=== PATIENT | male | born 1980 | race Caucasian/White ===

== ENCOUNTER → 2018-12-20 | Outpatient (CLI) | payer OTHER | END | disposition home or self-care (01) | LOC: LABPV 08:38 | PROVIDERS: ATTEND Internal Medicine | DX: R76.11 Nonspecific reaction to tuberculin skin test without active tuberculosis (principal) ==

== ENCOUNTER 2024-01-23 09:23 | Inpatient (IN) | payer OTHER ==
[~2024-01-23] VITALS: Ht 172.7 cm; Wt 102.1 kg
[2024-01-23 10:33] LABS: BASOPHILS % (AUTO) 0.4 % (0.0-2.0); EOSINOPHILS % (AUTO) 3.9 % (1.0-6.0); HEMATOCRIT 51.7 % (41-53); HEMOGLOBIN 17.5 g/dL (13.5-17.5); LYMPHOCYTES # (AUTO) 2.3 K/uL (1.0-4.8); LYMPHOCYTES % (AUTO) 32.8 % (22.0-44.0); MEAN CORPUSCULAR HGB CONC 33.9 G/dL (31.0-37.0); MEAN CORPUSCULAR VOLUME 91 fL (80-100); MONOCYTES # (AUTO) 0.6 K/uL (0.1-1.0); MONOCYTES % (AUTO) 8.7 % (2.0-9.0); NEUTROPHILS # (AUTO) 3.8 K/uL (1.8-7.7); NEUTROPHILS % (AUTO) 54.2 % (40.0-70.0); PLATELET COUNT (AUTO) 374 K/uL (150-450); RED BLOOD CELL COUNT(AUTO) 5.66 MIL/uL (4.50-5.90); RED CELL DISTRIBUTION WIDTH 13.5 % (11.5-14.5); WHITE BLOOD COUNT (AUTO) 7.1 K/uL (4.5-11.0)
[2024-01-23 10:48] LABS: ANION GAP 11 mmol/L (8-16); CALCIUM, TOTAL 8.6 mg/dL (8.8-10.5); CARBON DIOXIDE 26 mmol/L (22-29); CHLORIDE 103 mmol/L (98-107); CREATININE 0.83 mg/dL (0.60-1.30); GLOMERULAR FILTR. RATE CALC > 60 mL/min (>60); GLUCOSE,RANDOM 117 mg/dL (70-110); POTASSIUM 3.5 mmol/L (3.5-5.1); SODIUM SERUM 140 mmol/L (136-145); UREA NITROGEN, BLOOD 10 mg/dL (7-18)
[2024-01-23 11:05] LABS: ALCOHOL, BLOOD (SERUM) 240 mg/dL (0-10)
[2024-01-23 11:42] LABS: COVID AG,FIA SOURCE NASAL SWAB
[2024-01-23 12:00] LABS: SARS-COV2 (COVID) ANTIGEN,FIA Negative (Negative)
[2024-01-23] MEDS ORDERED: HALOPERIDOL 5 MG TABLET PO PRN (18:00)
[2024-01-24] MEDS: ZOLPIDEM TARTRATE 10 MG TABLET PO PRN (00:30)
[2024-01-24] MEDS: LORazepam 2 MG TABLET PO PRN (00:30)
[2024-01-24 03:16] VITALS: BP 138/103; PULSE 93; RESP 17; TEMP 97.8; O2SAT 98
[2024-01-24 07:26] VITALS: BP 174/116; PULSE 90; RESP 18; TEMP 97.6; O2SAT 100
[2024-01-24] MEDS: CloNIDine HCL 0.1 MG TABLET PO ONE (08:10)
[2024-01-24 08:24] LABS: HEMOGLOBIN A1C 5.5 % (3.8-5.6)
[2024-01-24 08:31] LABS: ALCOHOL, BLOOD (SERUM) < 3 mg/dL (0-10)
[2024-01-24 08:34] LABS: CHOL/HDL RATIO 3.2 (4.2-7.3); CHOLESTEROL 161 mg/dL (131-200); FREE T4 (FREE THYROXINE) 0.91 ng/dL (0.76-1.46); HDL CHOLESTEROL 50 mg/dL (40-60); LDL CHOL (CALC.) 78 mg/dL (0-130); THYROID STIMULATING HORMONE 1.53 uIU/mL (0.36-3.74); TRIGLYCERIDES 163 mg/dL (15-150)
[2024-01-24 08:40] VITALS: BP 159/117; PULSE 91; RESP 18; TEMP 98.8; O2SAT 96
[2024-01-24] MEDS: CARVEDILOL 12.5 MG TABLET PO SCH (09:15)
[2024-01-24 17:40] VITALS: BP 156/100; PULSE 68; RESP 18; TEMP 97.9; O2SAT 98
[2024-01-24] MEDS ORDERED: LORazepam 2 MG TABLET PO PRN (18:30)
[2024-01-24 20:00] VITALS: BP 141/97; PULSE 67; RESP 18; TEMP 97.9; O2SAT 98
[2024-01-25] VITALS (7 sets, daily range): BP systolic 129–151; BP diastolic 70–98; PULSE 58–82; RESP 16–18; TEMP 97–98.4; O2SAT 97–99
[2024-01-25] MEDS ORDERED: LORazepam 2 MG TABLET PO PRN (07:00)
[2024-01-25] MEDS: LORazepam 2 MG TABLET PO SCH (09:02)
[2024-01-26 08:47] VITALS: BP 123/93; PULSE 69; RESP 18; TEMP 97.3; O2SAT 100
[2024-01-27] MEDS ORDERED: LORazepam 1 MG TABLET PO PRN (07:00)
[2024-01-27] MEDS ORDERED: LORazepam 1 MG TABLET PO SCH (09:00)
[2024-01-28] MEDS ORDERED: LORazepam 1 MG TABLET PO PRN (07:00)
== END 2024-01-26 18:39 | disposition home or self-care (01) | DRG 885 ==
LOC: EMS 09:25 → B2S 22:46 → EMS 23:09
PROVIDERS: ADMIT Psychiatry & Neurology Child & Adolescent Psychiatry; ATTEND Psychiatry & Neurology Child & Adolescent Psychiatry
PROC: GZ56ZZZ Individual Psychotherapy, Supportive (ICD-10-PCS; principal; 2024-01-25)
DX: F33.9 Major depressive disorder, recurrent, unspecified (principal); F10.229 Alcohol dependence with intoxication, unspecified; R45.851 Suicidal ideations; Z20.822 Contact with and (suspected) exposure to COVID-19; I10 Essential (primary) hypertension
CPT/HCPCS: 80048; 80061; 83036; 84439; 84443; 84481; 85025; G0480

== ENCOUNTER 2024-01-24 11:19 | Emergency (ER) | payer OTHER ==
[~2024-01-24] VITALS: Ht 172.7 cm; Wt 102.3 kg
[2024-01-24 14:22] LABS: HEMATOCRIT 47.9 % (41-53); HEMOGLOBIN 16.2 g/dL (13.5-17.5); MEAN CORPUSCULAR HGB CONC 33.9 G/dL (31.0-37.0); MEAN CORPUSCULAR VOLUME 92 fL (80-100); PLATELET COUNT (AUTO) 317 K/uL (150-450); RED BLOOD CELL COUNT(AUTO) 5.24 MIL/uL (4.50-5.90); RED CELL DISTRIBUTION WIDTH 13.2 % (11.5-14.5); WHITE BLOOD COUNT (AUTO) 9.2 K/uL (4.5-11.0)
[2024-01-24 14:30] LABS: ANION GAP 10 mmol/L (8-16); CALCIUM, TOTAL 8.5 mg/dL (8.8-10.5); CARBON DIOXIDE 28 mmol/L (22-29); CHLORIDE 101 mmol/L (98-107); CREATININE 0.78 mg/dL (0.60-1.30); GLOMERULAR FILTR. RATE CALC > 60 mL/min (>60); GLUCOSE,RANDOM 106 mg/dL (70-110); POTASSIUM 3.4 mmol/L (3.5-5.1); SODIUM SERUM 139 mmol/L (136-145); UREA NITROGEN, BLOOD 12 mg/dL (7-18)
[2024-01-24 14:39] LABS: TROPONIN I-HIGH SENSITIVITY 4 ng/L (<76)
[2024-01-24 14:53] LABS: BAND NEUTROPHILS % (MANUAL) 3 % (0-5); EOSINOPHILS % (MANUAL) 2 % (1-6); LYMPHOCYTES % (MANUAL) 19 % (22-44); MONOCYTES % (MANUAL) 7 % (2-9); SEGMENTED NEUTROPHILS % 69 % (40-70); TOTAL CELLS COUNTED 100
[2024-01-24] MEDS: ChlordiazePOXIDE HCL 25 MG CAPSULE PO ONE (15:08)
[2024-01-24 15:15] VITALS: TEMP 98.4
[2024-01-24] MEDS: CloNIDine HCL 0.1 MG TABLET PO ONE (16:10)
[2024-01-24 17:30] VITALS: BP 137/85; PULSE 68; RESP 16; O2SAT 97
== END 2024-01-24 19:53 ==
LOC: EMS 11:19
DX: F10.939 Alcohol use, unspecified with withdrawal, unspecified (principal); F32.9 Major depressive disorder, single episode, unspecified; F12.90 Cannabis use, unspecified, uncomplicated; I10 Essential (primary) hypertension
CPT/HCPCS: 80048; 84484; 85025; 93005; 99285